=== PATIENT | female | born 1965 | race Caucasian/White ===

== ENCOUNTER 2016-08-23 00:50 | Inpatient (IN) | payer MEDICARE ==
--- NOTE | 2016-08-23 14:48 | NUR ---
0900: ORDER FROM DR. JOEL TO CONTACT DR. OHARA FOR DEEP LINE PLACEMENT. CONSENT OBTAINED AND ASSISTED AT BEDSIDE. DEEP LINE ATTEMPTED/UNSUCCESSFUL. PT BECAME INCREASING SOA, ANXIETY STATES SHE "CANT BREATHE" STAT CHEST XRAY. O2 SATS 92% ON 2L NC. DR. JOEL IN ROOM ASSESSING LUNG SOUNDS, STATES PT DIMINISHED IN RIGHT LUNG ROSE; XRAY SHOWED LARGE RIGHT PNEUMOTHORAX. STAT IV ATIVAN GIVEN AND NEB TX. PT RESPONDED WELL. VSS. DR MÉNDEZ FROM ER CALLED TO ROOM BY DR. JOEL. NEEDLE DECOMPRESSION PERFORMED AT BEDSIDE; DR. OHARA TO BEDSIDE CHEST TUBE ATTACHED TO COOK VALVE. IV ATIVAN AND DEMEROL GIVEN. STAT REPEAT CHEST XRAY SHOWED SIGNIFICANT IMPROVEMENT TO RIGHT PNEUMOTHORAX WITH RIGHT CHEST TUBE IN PLACE AT 0950. PT CALM, VSS. BP 110/76 HR 118 NSR; RR 22; O2 SAT 96% ON 2L O2.
--- NOTE | 2016-08-23 19:39 | NUR ---
1700: DR. MÉNDEZ HERE TO PLACE DEEP LINE. CONSENT SIGNED. DR. MÉNDEZ EXPLAINED TO PT.; PLACEMENT SUCCESSFUL. STAT CXR OBTAINED AND WAS GOOD FOR USE. PT TOLERATED WELL. PO ATIVAN WAS GIVEN PRIOR TO PROCEDURE. VSS. NO DISTRESS.
--- NOTE | 2016-08-25 15:21 | NUR ---
0900 DR OHARA CLAMPED CHEST TUBE OFF. AT 1030 PT HAVING SOME EDEMA ON THE RT SIDE OF BODY IN THE CHEST AND UP INTO THE NECK AND FACE. UNCLAMPED TUBE AND CHANGED DRESSING TO CHEST TUBE. AT [address] OHARA BOTH TO ROOM, EDEMA MUCH WORSE TO BOTH SIDES OF FACE. DR OHARA PULLED CHEST TUBE AND THEN REPLACED IT WITH NEW TUBE AT 1125. 1200 PT DOING MUCH BETTER VSS AND O2 TURNED BACK DOWN TO 3L FROM 4L. PT STATES THAT SHE IS BREATHING MUCH BETTER AND FEELS BETTER. WILL CONTINUE TO MONITOR PT.
--- NOTE | 2016-08-27 16:34 | NUR ---
CONTACTED NURSE CHARGE CONCEPCIÓN SANTORO @ 6609 REGARDING PATIENTS NEED TO BE TRANSFERRED TO TELEMENTRY CLOSE TO NURSES STATION. BED ASSIGNMENT GIVEN FOR 314. AWAITING COMMUNICATION HANDOFF TO MED SURG NURSE AT THIS TIME
--- NOTE | 2016-08-27 18:35 | NUR ---
[id number] - PATIENT TRANSFERRED FROM ICU TO ROOM 314. VS STABLE. NO C/O PAIN AT THIS TIME. AT BEDSIDE.
[2016-09-01] MEDS ORDERED: CELEXA40 MG PO (09:21)
[2016-09-01] MEDS ORDERED: VENTOLIN HFA8 GM IH (09:22)
[2016-09-01] MEDS ORDERED: NEURONTIN800 MG PO (09:22)
[2016-09-01] MEDS ORDERED: LIPITOR20 MG PO (09:22)
[2016-09-01] MEDS ORDERED: NORVASC10 MG PO (09:22)
[2016-09-01] MEDS ORDERED: ZYRTEC10 MG PO (09:23)
[2016-09-01] MEDS ORDERED: ASPIR 8181 MG PO (09:23)
[2016-09-01] MEDS ORDERED: SUBOXONE 8 MG-1 EACH SL (09:23)
[2016-09-01] MEDS ORDERED: PHENERGAN25 M1 PO (09:24)
[2016-09-01] MEDS ORDERED: LANTUS100 UNIT/1 SQ (09:24)
[2016-09-01] MEDS ORDERED: PROTONIX40 MG PO (09:24)
[2016-09-01] MEDS ORDERED: SYMBICORT IH (09:25)
[2016-09-01] MEDS ORDERED: TUDORZA PRESS400 MCG IH (09:25)
[2016-09-01] MEDS ORDERED: IPRAT-ALBUT 0.5-3 ML NEB (09:26)
== END 2016-08-31 14:28 | disposition home or self-care (01) | DRG 871 ==
LOC: ER 00:50 → ICU 02:40 → MED 08-27 17:45
PROVIDERS: ADMIT Internal Medicine
PROC: 05H533Z Insertion of Infusion Device into Right Subclavian Vein, Percutaneous Approach (ICD-10-PCS; principal; 2016-08-24)
PROC: 0W9930Z Drainage of Right Pleural Cavity with Drainage Device, Percutaneous Approach (ICD-10-PCS; 2016-08-24)
DX: A41.9 Sepsis, unspecified organism (principal); J18.9 Pneumonia, unspecified organism; J96.20 Acute and chronic respiratory failure, unspecified whether with hypoxia or hypercapnia; J44.0 Chronic obstructive pulmonary disease with (acute) lower respiratory infection; J44.1 Chronic obstructive pulmonary disease with (acute) exacerbation; B37.49 Other urogenital candidiasis; N18.4 Chronic kidney disease, stage 4 (severe); J95.811 Postprocedural pneumothorax; R65.20 Severe sepsis without septic shock; I12.9 Hypertensive chronic kidney disease with stage 1 through stage 4 chronic kidney disease, or unspecified chronic kidney disease; E11.22 Type 2 diabetes mellitus with diabetic chronic kidney disease; F17.210 Nicotine dependence, cigarettes, uncomplicated; T81.82XA Emphysema (subcutaneous) resulting from a procedure, initial encounter; F41.9 Anxiety disorder, unspecified; F32.9 Major depressive disorder, single episode, unspecified; G89.29 Other chronic pain; I73.9 Peripheral vascular disease, unspecified; B18.2 Chronic viral hepatitis C; J30.9 Allergic rhinitis, unspecified; Z79.82 Long term (current) use of aspirin; Z79.84 Long term (current) use of oral hypoglycemic drugs; Z79.4 Long term (current) use of insulin; Z79.899 Other long term (current) drug therapy; Z88.2 Allergy status to sulfonamides; Z98.51 Tubal ligation status; Z83.3 Family history of diabetes mellitus; Z87.898 Personal history of other specified conditions; E87.6 Hypokalemia; R19.7 Diarrhea, unspecified
CPT/HCPCS: 36415; 80307; 87502; 87507; 94664; 97162-GP; 97166; G0480; J0696; J1650; J2060; J3370; J7050

== ENCOUNTER 2016-08-23 00:50 | Emergency (ER) | payer MEDICARE ==
[2016-09-01] MEDS ORDERED: CELEXA40 MG PO (09:21)
[2016-09-01] MEDS ORDERED: NEURONTIN800 MG PO (09:22)
[2016-09-01] MEDS ORDERED: VENTOLIN HFA8 GM IH (09:22)
[2016-09-01] MEDS ORDERED: NORVASC10 MG PO (09:22)
[2016-09-01] MEDS ORDERED: LIPITOR20 MG PO (09:22)
[2016-09-01] MEDS ORDERED: ASPIR 8181 MG PO (09:23)
[2016-09-01] MEDS ORDERED: ZYRTEC10 MG PO (09:23)
[2016-09-01] MEDS ORDERED: SUBOXONE 8 MG-1 EACH SL (09:23)
[2016-09-01] MEDS ORDERED: PROTONIX40 MG PO (09:24)
[2016-09-01] MEDS ORDERED: LANTUS100 UNIT/1 SQ (09:24)
[2016-09-01] MEDS ORDERED: PHENERGAN25 M1 PO (09:24)
[2016-09-01] MEDS ORDERED: TUDORZA PRESS400 MCG IH (09:25)
[2016-09-01] MEDS ORDERED: SYMBICORT IH (09:25)
[2016-09-01] MEDS ORDERED: IPRAT-ALBUT 0.5-3 ML NEB (09:26)
== END 2016-08-23 02:39 | disposition critical access hospital (66) ==
LOC: ER 00:50
DX: A41.9 Sepsis, unspecified organism (principal); J18.9 Pneumonia, unspecified organism; N30.00 Acute cystitis without hematuria; E11.9 Type 2 diabetes mellitus without complications; J44.9 Chronic obstructive pulmonary disease, unspecified; I10 Essential (primary) hypertension; F41.9 Anxiety disorder, unspecified; F17.210 Nicotine dependence, cigarettes, uncomplicated; Z79.899 Other long term (current) drug therapy; Z79.84 Long term (current) use of oral hypoglycemic drugs; Z79.4 Long term (current) use of insulin; Z79.82 Long term (current) use of aspirin; Z88.2 Allergy status to sulfonamides
CPT/HCPCS: 36415; 51702; 96361; 96365; 96375; J0696; J3370